=== PATIENT | male | born 1950 | race Caucasian/White ===

== ENCOUNTER 2019-01-27 09:14 | Inpatient (IN) | payer MEDICARE ==
[2019-01-27] MEDS ORDERED: NS 0.9% 1000 ML** 1,000 ML IV ONE (09:25)
[2019-01-27] MEDS ORDERED: Diltiazem IV VIAL* 125 MG in NS 0.9% 100 ML* 100 ML IV ONE (09:46)
[2019-01-27] MEDS ORDERED: Diltiazem IV push/loading dose 5 MG/ML 5 ML vial (25 mg) IV SLOW PU ONE (09:47)
--- NOTE | 2019-01-27 09:47 | ED ---
Shortness of Breath - HPI Summary HPI Summary: This patient is a 69 year old M presenting to [facility] accompanied by with a chief complaint of SOB since night of 01/26/19. Pt went to PCP yesterday 01/26/19 as he previously had pneumonia, and PCP did an EKG that revealed pt was tachycardic. Pt then went to PCP for a follow up today and was sent to the ED. Patient reports edema in legs. Pt reports he does not PMHx of atrial fibrillation. Symptoms aggravated by nothing. Symptoms alleviated by nothing. - History of Current Complaint Chief Complaint: EDDysrhythmPalp Time Seen by Provider: 01/27/19 09:25 Hx Obtained From: Patient Onset/Duration: Lasting Days, Still Present Timing: Constant Aggravating Factors: Nothing Alleviating Factors: Nothing Associated Signs & Symptoms: Edema - Allergy/Home Medications Allergies/Adverse Reactions: Allergies Allergy/AdvReac Type Severity Reaction Status Date / Time No Known Allergies Allergy Verified 01/27/19 09:17 Home Medications: Home Medications Metoprolol Tartrate TAB* [Lopressor TAB*] 50 mg PO BID 01/27/19 [History Confirmed 01/27/19] Rivaroxaban TAB(*) [Xarelto 20 mg] 20 mg PO DAILY 01/27/19 [History Confirmed ] PMH/Surg Hx/FS Hx/Imm Hx Sensory History: Denies: Hx Legally Blind EENT History: Denies: Hx Deafness Infectious Disease History: No Infectious Disease History: Denies: Traveled Outside the [place] in Last 30 Days - Family History Known Family History: Positive: Diabetes, Other - FHx of Heart Issues - Social History Occupation: Retired Alcohol Use: Occasionally Substance Use Type: Reports: None Hx Tobacco Use: Yes Smoking Status (MU): Former Smoker Review of Systems Positive: Other - A fib Positive: Shortness Of Breath Positive: Edema All Other Systems Reviewed And Are Negative: Yes Physical Exam - Summary Physical Exam Summary: GENERAL: Patient is a well-developed and nourished M who is lying comfortable in the stretcher. Patient is not in any acute respiratory distress. HEAD AND FACE: Normocephalic EYES: PERRLA, EOMI x 2. EARS: Hearing grossly intact. MOUTH: Oropharynx within normal limits. NECK: Supple, trachea is midline, no adenopathy, no JVD, no carotid bruit. CHEST: Symmetric, no tenderness at palpation LUNGS: Clear to auscultation bilaterally. Crackles on left side. CVS: Regular rate and rhythm, S1 and S2 present, no murmurs or gallops appreciated. ABDOMEN: Soft, non-tender. Bowel sounds are normal. No abnormal abdominal pulsations. EXTREMITIES: Full ROM in all major joints, 3+ pitting edema in legs, no cyanosis or clubbing. NEURO: Alert and oriented x 3. No acute neurological deficits. Speech is normal and follows commands. SKIN: Dry and warm Triage Information Reviewed: Yes Vital Signs On Initial Exam: Initial Vitals Temp Pulse Resp BP Pulse Ox 97.2 F 145 18 114/92 99 01/27/19 09:15 01/27/19 09:15 01/27/19 09:15 01/27/19 09:15 01/27/19 09:15 Vital Signs Reviewed: Yes Diagnostics - Vital Signs Vital Signs Temp Pulse Resp BP Pulse Ox 01/27/19 09:28 135 16 128/97 01/27/19 09:15 97.2 F 145 18 114/92 99 - Laboratory Result Diagrams: 01/28/19 05:58 01/28/19 05:58 Lab Statement: Any lab studies that have been ordered have been reviewed, and results considered in the medical decision making process. - Radiology CXR Radiology Interpretation Completed By: Radiologist Summary of Radiographic Findings: CXR reveals, per radiologist, IMPRESSION: Right mid to lower lobe airspace opacification. ED physician has reviewed this radiology report. - EKG 918 EKG Rhythm: Atrial Fibrillation Summary of EKG Findings: An EKG at 0919 reveals atrial fibrillation with RVR 138 bpm, associated diffuse t-wave abnormalities, and mild prolongation of QT. Re-Evaluation - Re-Evaluation First Eval Re-Evaluation Time: 12:17 Change: Unchanged Comment: Discussed results and plan of care with pt. Course/Dx - Course Course Of Treatment: This patient is a 69 year old M presenting to [facility] accompanied by with a chief complaint of SOB since night of 01/26/19. Physical Exam Findings are nml, except for crackles on left side, and 3+ pitting edema in legs. Blood Work obtained. D-Dimer is 531. Troponin is 0.04. RDW is 16. INR is 3.17, APTT is 43.6, Chloride is 112, BUN is 30, BUN/ Creatinine Ratio is 32.3, Calcium is 6.5, Total Bilirubin is 1.40, AST is 42, ALT is 54, B-Natriuretic Peptide is >1300, Total protein is 6.0. An EKG at 0919 reveals atrial fibrillation with RVR 138 bpm, associated diffuse t-wave abnormalities, and mild prolongation of QT. CXR reveals, per radiologist, IMPRESSION: Right mid to lower lobe airspace opacification. In the ED course the patient was given fluids, Diltiazen IV 125 mg and 10mg, Furosemide 40 mg IV , and ceftriaxone. Case discussed with hospitalist. I discussed results with patient. The patient agrees with this plan. Pt will be admitted. - Diagnoses Provider Diagnoses: Atrial fibrillation with RVR, Acute pneumonia - Physician Notifications Discussed Care of Patient With: Janet Figueroa Time Discussed With Above Provider: 11:01 Instructed by Provider To: Other - Discussed patient's case with Dr. Figueroa, who accepts pt for admission. - Critical Care Time Critical Care Time: 30-74 min Discharge - Sign-Out/Discharge Documenting (check all that apply): Patient Departure - Admmit Patient Received Moderate/Deep Sedation with Procedure: No - Discharge Plan Condition: Stable Disposition: ADMITTED TO [facility] - Billing Disposition and Condition Condition: STABLE Disposition: Admitted to [facility] - Attestation Statements Document Initiated by Sintia: Yes Documenting Scribe: Wendy Zuñiga Provider For Whom Sintia is Documenting (Include Credential): Dr. Dunia Milian MD Scribe Attestation: Wendy Price scribed for Dr. Dunia Milian MD on 01/28/19 at 0756. Scribe Documentation Reviewed: Yes Provider Attestation: The documentation as recorded by the Wendy bullard accurately reflects the service I personally performed and the decisions made by me, Dr. Dunia Milian MD Status of Scribe Document: Viewed
[2019-01-27 10:03] LABS: ABS Eosinophils 0.1 10^3/ul (0-0.6); ABS Lymphocytes 1.2 10^3/ul (1.0-4.8); ABS Monocytes 0.6 10^3/ul (0-0.8); ABS Neutrophils 6.4 10^3/ul (1.5-7.7); Eosinophil % 0.9 %; Hematocrit 45 % (42-52); Hemoglobin 14.9 g/dL (14.0-18.0); Lymphocyte % 14.7 %; Mean Corpuscular HGB Conc 33 g/dL (31-36); Mean Corpuscular Hemoglobin 31 pg (27-31); Mean Corpuscular Volume 94 fL (80-94); Mean Platelet Volume 10.1 fL (7.4-10.4); Platelet Count 184 10^3/uL (150-450); Red Blood Count 4.77 10^6 /uL (4.18-5.48); Red Cell Distribution Width 16 % (10-15); White Blood Count 8.4 10^3/uL (3.5-10.8)
[2019-01-27] MEDS ORDERED: Diltiazem IV BAG* D5W Premix 125 MG/125 ML BAG IV ONE (10:19)
[2019-01-27 10:25] LABS: Troponin I 0.04 ng/mL (<0.04)
[2019-01-27 10:29] LABS: Activated Partial Thrombo Time 43.6 seconds (26.0-38.0); INR 3.17 (0.82-1.09)
[2019-01-27 10:31] LABS: ALT 54 U/L (7-52); AST 42 U/L (13-39); Albumin 3.7 g/dL (3.2-5.2); Albumin/Globulin Ratio 1.6 (1-3); Alkaline Phosphatase 85 U/L (34-104); BUN/Creatinine Ratio 32.3 (8-20); Blood Urea Nitrogen 30 mg/dL (6-24); CO2 Carbon Dioxide 23 mmol/L (22-32); Calcium 8.5 mg/dL (8.6-10.3); EGFR African American 97.8 (>60); EGFR Non-African American 80.8 (>60); Globulin 2.3 g/dL (2-4); Glucose 100 mg/dL (70-100); Magnesium 1.9 mg/dL (1.9-2.7); Potassium 4.8 mmol/L (3.5-5.0); Sodium 143 mmol/L (135-145)
[2019-01-27 10:37] LABS: Anion Gap 8 mmol/L (2-11); Chloride 112 mmol/L (101-111)
[2019-01-27] MEDS ORDERED: Azithromycin 500 mg/250 ml NS 500 MG/250 ML BAG IVPB ONE (10:42)
[2019-01-27] MEDS ORDERED: cefTRIAXone(*) 1 GM in NS 0.9% 50 ML* 50 ML IVPB ONE (10:42)
[2019-01-27] MEDS ORDERED: Furosemide IV* 10 MG/ML VIAL (40 MG) IV ONE ×2 (10:44→22:09)
[2019-01-27 10:56] LABS: TSH (Thyroid Stimulating Horm) 3.72 mcIU/mL (0.34-5.60)
[2019-01-27] MEDS ORDERED: Digoxin IV* 0.5 MG/2 ML AMP (0.25 MG/ML) IV SLOW PU ONE (12:38)
[2019-01-27] MEDS ORDERED: Iodixanol* (CONTRAST) 320 MG/ML 100 ML SDV IV ONE (12:53)
[2019-01-27] MEDS ORDERED: Rivaroxaban TAB(*) 20 MG TAB PO SCH (13:00)
[2019-01-27] MEDS ORDERED: Thiamine IV* 100 MG/ML 2 ML VIAL IV ONE (13:22)
[2019-01-27] MEDS ORDERED: Acetaminophen TAB* 325 MG PO PRN (13:22)
[2019-01-27] MEDS ORDERED: LORazepam TAB(*) 1 MG PO SCH (14:00)
[2019-01-27] MEDS ORDERED: Heparin VIAL(*) 5000 UNITS/ML VIAL (FIVE THOUSAND) SUBCUT SCH (14:00)
[2019-01-27 14:15] LABS: Troponin I 0.04 ng/mL (<0.04)
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
[2019-01-27] MEDS: Diltiazem IV BAG* D5W Premix 125 MG/125 ML BAG IV SCH (16:37)
--- NOTE | 2019-01-27 17:17 | ECHO ---
*[facility]* [place] [address] Fax #: [phone] Transthoracic Echocardiogram Patient: Phani Branham : 1950 Study Date: 01/27/2019 Age: 69 Gender: M HR: 125 bpm Height: 78 in /198.1 cm BSA: 2.35 m^2 Weight: 219.5 lb /99.8 kg BMI: 25.4 kg/m^2 *[employer]: * Prudence Lehman RDCS RN *Referring Physician: * Janet RamirezReading Physician: * Eric Mar MD Indications: Atrial Fibrillation. History: Risk factors: Current tobacco use. Conclusions Summary: - Left ventricle: Systolic function is severely reduced. The estimated ejection fraction is 20-25%. Severe diffuse hypokinesis. The inferolateral base moves best. - Right ventricle: Systolic function is moderately to severely reduced. - Left atrium: The atrium is mildly dilated. - Mitral valve: There is mild to moderate regurgitation. - Aortic valve: There is no evidence of stenosis. There is trace regurgitation. - Tricuspid valve: The leaflets are mildly thickened. There is moderately redundant tricuspid valve There is moderate regurgitation. - Pericardium, extracardiac: There is no pericardial effusion. - Pulmonary arteries: Systolic pressure is mildly increased, estimated to be 38 mm Hg. - Study data: No prior study is available for comparison. Study data: Transthoracic echocardiogram. Procedure: Transthoracic echocardiography was performed. Image quality was fair. The study was technically limited due to smoking history. Complete 2D, spectral Doppler, and color flow Doppler. Location: Bedside. Patient status: Inpatient. Patient room number: 441-02. No prior study is available for comparison. Rhythm: Atrial fibrillation. Findings Left ventricle: The cavity size is normal. Wall thickness is mildly increased. Systolic function is severely reduced. The estimated ejection fraction is 20-25%. Severe diffuse hypokinesis. The inferolateral base moves best. Left ventricular diastolic function parameters are indeterminate. Right ventricle: The cavity size is mildly dilated. Systolic function is moderately to severely reduced. Left atrium: The atrium is mildly dilated. Right atrium: The atrium is moderately dilated. Mitral valve: The leaflets are mildly thickened. There is no evidence of stenosis. There is mild to moderate regurgitation. Aortic valve: The valve is trileaflet. The leaflets are mildly thickened. There is no evidence of stenosis. There is trace regurgitation. Tricuspid valve: The leaflets are mildly thickened. There is moderately redundant tricuspid valve There is no evidence of stenosis. There is moderate regurgitation. Pulmonic valve: The leaflets are normal thickness. There is no evidence of stenosis. There is trace regurgitation. Aorta: Aortic root: The aortic root is mildly dilated. Ascending aorta: The ascending aorta is not dilated. Aortic arch: The aortic arch is not dilated. Pericardium: There is no pericardial effusion. Pulmonary arteries: Not well visualized. Systolic pressure is mildly increased, estimated to be 38 mm Hg. Systemic veins: Inferior vena cava: The vessel is mildly dilated. There is (< 50%) respiratory change in the IVC dimension. Measurements Left ventricle Value Ref Aortic valve continued Value Ref REGGIE, LAX 5.5 cm 4.2 - Peak v, S 0.75 m/sec ----- 5.8 VTI, S 14.1 cm ----- ESD, LAX (H) 5.0 cm 2.5 - Mean grad, S 2.0 mm Hg ----- 4.0 Peak grad, S 2.0 mm Hg ----- FS, LAX (L) 9 % 25 - 43 LVOT/AV, VTI ratio 0.45 ----- PW, ED (H) 1.2 cm 0.6 - 1.0 Mitral valve Value Ref IVS/PW, ED 0.92 -------- Peak E 0.91 m/sec ----- E', lat jeromy, TDI (L) 5.6 cm/sec >=10.0 Decel time 126 ms ----- E/e', lat jeromy, TDI 16 -------- Peak grad, D 3.3 mm Hg --- -- E', med jeromy, TDI (L) 5.3 cm/sec >=7.0 E/e', med jeromy, TDI 17 -------- Pulmonic valve Value Ref E', avg, TDI 5.5 cm/sec -------- Peak v, S 0.46 m/sec --- -- E/e', avg, TDI (H) 17 <=14 Peak grad, S 1.0 mm Hg ----- LVOT Value Ref Tricuspid valve Value Ref Peak arnulfo, S 0.54 m/sec -------- TR peak v 2.4 m/sec <=2.8 VTI, S 6.4 cm -------- Peak RV-RA grad, S 23 mm Hg ----- Mean grad, S 0 mm Hg -------- Max TR arnulfo 2.4 m/sec ----- Ventricular septum Value Ref Aortic root Value Ref IVS, ED (H) 1.1 cm 0.6 - Root diam 4.0 cm <4.4 1.0 Ascending aorta Value Ref Right ventricle Value Ref AAo AP diam, S 3.6 cm ----- REGGIE, LAX 3.9 cm -------- AAo AP diam/bsa, S 1.5 cm/m^2 ----- REGGIE minor ax, A4C (H) 4.2 cm 1.9 - mid 3.5 Aortic arch Value Ref Pressure, S 38 mm Hg -------- Arch diam 3.2 cm ----- Left atrium Value Ref Decending aorta Value Ref ML dim, A4C 5.0 cm -------- Cricket peak arnulfo 0.38 m/sec ----- SI dim, A4C 5.4 cm -------- Vol/bsa, ES, 1-p 33 ml/m^2 12 - 37 Pulmonary artery Value Ref A4C Pressure, S 37.0 mm Hg ----- Vol/bsa, ES, A/L (H) 39 ml/m^2 16 - 34 Inferior vena cava Value Ref Right atrium Value Ref Diam 2.9 cm ----- ML dim, ES, A4C (H) 4.8 cm 2.6 - 4.4 SI dim, ES, A4C (H) 6.8 cm 3.4 - 5.3 Estimated RAP 15 mm Hg -------- Aortic valve Value Ref Jeromy diam, ED 2.0 cm -------- Jeromy diam/bsa, ED 0.8 cm/m^2 -------- Legend: (L) and (H) ezra values outside specified reference range. Prepared and electronically signed by Eric Mar MD 01/27/2019 17:17
[2019-01-27] MEDS: Rivaroxaban TAB(*) 20 MG TAB PO SCH (17:50)
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
[2019-01-27] MEDS: DOXYcycline IV* 100 MG in NS 0.9% 250 ML* 250 ML IVPB SCH (21:39)
[2019-01-28 06:22] LABS: ABS Eosinophils 0.2 10^3/ul (0-0.6); ABS Lymphocytes 1.9 10^3/ul (1.0-4.8); ABS Monocytes 0.6 10^3/ul (0-0.8); Eosinophil % 2.4 %; Hematocrit 45 % (42-52); Lymphocyte % 24.6 %; Mean Corpuscular HGB Conc 34 g/dL (31-36); Mean Corpuscular Hemoglobin 31 pg (27-31); Mean Corpuscular Volume 94 fL (80-94); Mean Platelet Volume 10.3 fL (7.4-10.4); Platelet Count 152 10^3/uL (150-450); Red Blood Count 4.76 10^6 /uL (4.18-5.48); Red Cell Distribution Width 15 % (10-15); White Blood Count 7.8 10^3/uL (3.5-10.8)
[2019-01-28 06:40] LABS: Albumin 3.6 g/dL (3.2-5.2); Albumin/Globulin Ratio 1.4 (1-3); Calcium 8.9 mg/dL (8.6-10.3); EGFR African American 102.9 (>60); Globulin 2.5 g/dL (2-4); Potassium 3.9 mmol/L (3.5-5.0); Total Bilirubin 1.6 mg/dL (0.2-1.0); Total Protein 6.1 g/dL (6.4-8.9)
[2019-01-28 06:55] LABS: INR 3.14 (0.82-1.09)
[2019-01-28] MEDS: Multivitamins/Minerals TAB PO SCH (07:59)
[2019-01-28] MEDS: Thiamine TAB* 100 MG TAB PO SCH (07:59)
[2019-01-28] MEDS: Folic Acid TAB* 1 MG PO SCH (07:59)
[2019-01-28] MEDS ORDERED: Verapamil SR TAB* 240 MG PO SCH (09:00)
[2019-01-28] MEDS: DOXYcycline IV* 100 MG in NS 0.9% 250 ML* 250 ML IVPB SCH ×2 (09:48→20:55)
[2019-01-28] MEDS: cefTRIAXone(*) 1 GM in NS 0.9% 50 ML* 50 ML IVPB SCH (11:23)
[2019-01-28] MEDS: Rivaroxaban TAB(*) 20 MG TAB PO SCH (12:49)
[2019-01-28] MEDS: Diltiazem IV BAG* D5W Premix 125 MG/125 ML BAG IV SCH (15:01)
[2019-01-28] MEDS ORDERED: fentaNYL* 50 MCG/ML 2 ML VIAL (100 MCG VIAL) ONE (15:10)
[2019-01-28] MEDS ORDERED: Flumazenil* 0.1 MG/ML 5 ML MDV ONE (15:10)
[2019-01-28] MEDS ORDERED: Midazolam* 1 MG/ML 5 ML VIAL (5 MG) ONE ×2 (15:10→15:11)
[2019-01-28] MEDS ORDERED: Lidocaine 2% VISCOUS* 15 ML UDC ONE (15:10)
[2019-01-28] MEDS ORDERED: Naloxone* 0.4 MG/ML 1 ML VIAL ONE (15:10)
[2019-01-28] MEDS ORDERED: Amiodarone 150 MG IVPREMIX* 150 MG/100 ML BAG IV ONE ×2 (16:11→16:39)
--- NOTE | 2019-01-28 16:22 | PN ---
Subjective Date of Service: 01/28/19 - CC: SOB, atrial fibrillation, severe cardiomyopathy. Interval History: The patient states leg edema improved, sleeping OK, has walked on the floor w/o problems. Remains unaware of afib, no palpitations. Medications Active Medications: Acetaminophen (Tylenol Tab*) 650 mg PO Q4H PRN PRN Reason: PAIN Amiodarone HCl (Cordarone Tab*) 400 mg PO BID [facility] Folic Acid (Folvite Tab*) 1 mg PO DAILY [facility] Last Admin: 01/28/19 07:59 Dose: 1 mg Doxycycline Hyclate 100 mg/ (Sodium Chloride) 250 mls @ 250 mls/hr IVPB Q12H [facility] Last Admin: 01/28/19 09:48 Dose: 250 mls/hr Ceftriaxone Sodium 1 gm/ (Sodium Chloride) 50 mls @ 100 mls/hr IVPB Q24H [facility] Last Admin: 01/28/19 11:23 Dose: 100 mls/hr Amiodarone HCl (Nexterone Drip*) 150 mg in 100 mls @ 600 mls/hr IV ED ONCE ONE Stop: 01/28/19 16:20 Multivitamins/Minerals (Theragran/Minerals Tab*) 1 tab PO DAILY [facility] Last Admin: 01/28/19 07:59 Dose: 1 tab Rivaroxaban (Xarelto(*)) 20 mg PO 0900 [facility] Last Admin: 01/28/19 12:49 Dose: 20 mg Thiamine HCl (Vitamin B-1 Tab*) 100 mg PO DAILY [facility] Last Admin: 01/28/19 07:59 Dose: 100 mg Verapamil HCl (Calan Sr Tab*) 240 mg PO DAILY [facility] Last Admin: 01/28/19 08:00 Dose: 240 mg Objective Vital Signs: Temp Pulse Resp BP Pulse Ox 97.6 F 72 30 125/104 95 01/28/19 07:20 01/28/19 15:05 01/28/19 15:05 01/28/19 15:05 01/28/19 15:05 Oxygen Devices in Use Now: None, Nasal Cannula Appearance: Somewhat older male,lying, comfortable. Eyes: No Scleral Icterus, PERRLA Ears/Nose/Mouth/Throat: Mucous Membranes Moist Neck: Trachea Midline, No Thyroid Enlargement, Masses Respiratory: Symmetrical Chest Expansion and Respiratory Effort - decreased BS bases. Cardiovascular: - - irregularly irregular, tachycardic Abdominal: NL Sounds; No Tenderness; No Distention Extremities: No Edema Skin: No Rash or Ulcers Neurological: Alert and Oriented x 3, NL Muscle Strength and Tone Lines/Tubes/Other Access: Clean, Dry and Intact Peripheral IV Laboratory Results: 01/28/19 05:58 01/28/19 05:58 INR (Anticoag Therapy) 3.14 (0.82-1.09) H 01/28/19 05:58 APTT 43.6 seconds (26.0-38.0) H 01/27/19 09:52 Total Bilirubin 1.60 mg/dL (0.2-1.0) H 01/28/19 05:58 AST 32 U/L (13-39) 01/28/19 05:58 ALT 46 U/L (7-52) 01/28/19 05:58 Alkaline Phosphatase 83 U/L (34-104) 01/28/19 05:58 B-Natriuretic Peptide > 1300 pg/mL (<=100) H 01/27/19 10:00 Total Protein 6.1 g/dL (6.4-8.9) L 01/28/19 05:58 Albumin 3.6 g/dL (3.2-5.2) 01/28/19 05:58 Globulin 2.5 g/dL (2-4) 01/28/19 05:58 Albumin/Globulin Ratio 1.4 (1-3) 01/28/19 05:58 TSH 3.72 mcIU/mL (0.34-5.60) 01/27/19 09:52 01/27/19 01/27/19 01/27/19 09:52 13:14 16:15 Troponin I 0.04 H* 0.04 H* 0.03 Diagnostic Imaging: Study data: Transthoracic echocardiogram. Rhythm: Atrial fibrillation. Findings Left ventricle: The cavity size is normal. Wall thickness is mildly increased. Systolic function is severely reduced. The estimated ejection fraction is 20-25%. Right ventricle: The cavity size is mildly dilated. Systolic function is moderately to severely reduced. Mitral valve: T There is mild to moderate regurgitation. Aortic valve: There is trace regurgitation. Tricuspid valve: There is moderate regurgitation. Pericardium: There is no pericardial effusion. Pulmonary arteries: Systolic pressure is mildly increased, estimated to be 38 mm Hg. Systemic veins: Inferior vena cava: The vessel is mildly dilated. There is (< 50%) respiratory change in the IVC dimension. - EKG Data: Tele: Afib, RVR 100-120's. Assessment/Plan 69 yo with afib, asymptomatic of uncertain duration with a severe CM, presumed to be tachycardic induced. Recent pneumonia, mild alcohol intake. The patient has been on Xarelto and underwent successful GRANT guided CV today. PAFib: Amiodarone started 400 BID, can decrease to 400 daily in 5 days or sooner in HR too low. Amiodarone 200 mg/day after 8 gram load. Continue Xarelto. CM + CHF I stopped diltiazem gtt and verapamil as negative ionotropes, not good with CM. Starting Carvedilol low dose. Recommend aldactone 25 mg daily with lasix 20 mg daily (or alternate if BP won't allow). If BP tolerates add ACEI or ARB. Titrate BB, ACEI, diuretics as vitals, fluid status indicates. Migraines: Per hospitalists verapamil was on for migraines. I discussed d/c of this, ideally would leave off unless/until EF improves.
--- NOTE | 2019-01-28 16:41 | PN ---
Subjective Date of Service: 01/28/19 Interval History: Patient went for cardioversion today, has had a-fib with RVR since admission. He was on verapamil for migraine prophylaxis. Reports beta blockers not effective in that role in past. Spoke with Dr. Maria, she is stopping verapamil as this can contribute to dilated cardiomyopathy, and stopping Dilt ggt as cardioversion was successful. Family History: Unchanged from Admission Social History: Unchanged from Admission Past Medical History: Unchanged from Admission Objective Active Medications: Acetaminophen (Tylenol Tab*) 650 mg PO Q4H PRN PRN Reason: PAIN Amiodarone HCl (Cordarone Tab*) 400 mg PO BID [facility] Carvedilol (Coreg Tab*) 3.125 mg PO BID [facility] Folic Acid (Folvite Tab*) 1 mg PO DAILY [facility] Last Admin: 01/28/19 07:59 Dose: 1 mg Doxycycline Hyclate 100 mg/ (Sodium Chloride) 250 mls @ 250 mls/hr IVPB Q12H [facility] Last Admin: 01/28/19 09:48 Dose: 250 mls/hr Ceftriaxone Sodium 1 gm/ (Sodium Chloride) 50 mls @ 100 mls/hr IVPB Q24H [facility] Last Admin: 01/28/19 11:23 Dose: 100 mls/hr Multivitamins/Minerals (Theragran/Minerals Tab*) 1 tab PO DAILY [facility] Last Admin: 01/28/19 07:59 Dose: 1 tab Rivaroxaban (Xarelto(*)) 20 mg PO 0900 [facility] Last Admin: 01/28/19 12:49 Dose: 20 mg Thiamine HCl (Vitamin B-1 Tab*) 100 mg PO DAILY [facility] Last Admin: 01/28/19 07:59 Dose: 100 mg Topiramate (Topamax(*)) 25 mg PO BID [facility] Vital Signs - 8 hr 01/28/19 01/28/19 01/28/19 15:04 15:05 15:30 Temperature 36.8 C Pulse Rate 72 Respiratory 36 30 Rate Blood Pressure 125/104 (mmHg) O2 Sat by Pulse 95 Oximetry 01/28/19 01/28/19 01/28/19 15:33 15:39 15:42 Temperature Pulse Rate 90 90 95 Respiratory Rate Blood Pressure 153/119 91/66 72/60 (mmHg) O2 Sat by Pulse 92 93 92 Oximetry 01/28/19 01/28/19 01/28/19 16:12 16:17 16:22 Temperature Pulse Rate 72 71 74 Respiratory Rate Blood Pressure 118/79 119/76 120/86 (mmHg) O2 Sat by Pulse 97 98 96 Oximetry Oxygen Devices in Use Now: None, Nasal Cannula Appearance: alert, no distress Eyes: No Scleral Icterus Ears/Nose/Mouth/Throat: Clear Oropharnyx Neck: No Thyroid Enlargement, Masses Respiratory: Symmetrical Chest Expansion and Respiratory Effort, Clear to Auscultation Cardiovascular: NL Sounds; No Murmurs; No JVD, RRR Abdominal: NL Sounds; No Tenderness; No Distention Lymphatic: No Cervical Adenopathy Neurological: Alert and Oriented x 3 Lines/Tubes/Other Access: Clean, Dry and Intact Peripheral IV Nutrition: Taking PO's Result Diagrams: 01/28/19 05:58 01/28/19 05:58 Additional Lab and Data: Laboratory Tests 01/27/19 01/27/19 01/27/19 10:00 13:14 16:15 Troponin I 0.04 H* 0.03 B-Natriuretic Peptide > 1300 H Assess/Plan/Problems-Billing Assessment: 69 year old man with h/o migraines, here with a-fib, rapid ventricular response , tachycardia-induced cardiomyopathy - Patient Problems (1) Atrial fibrillation with RVR Current Visit: Yes Status: Acute Priority: High Code(s): I48.91 - UNSPECIFIED ATRIAL FIBRILLATION SNOMED Code(s): 899421555306670 Comment: -Cardioversion successful -Anticoagulation with Xarelto already initiated -Dr. Maria starting amiodarone to maintain NSR (2) Tachycardia-induced cardiomyopathy Current Visit: Yes Status: Acute Priority: Medium Code(s): R00.0 - TACHYCARDIA, UNSPECIFIED; I43 - CARDIOMYOPATHY IN DISEASES CLASSIFIED ELSEWHERE SNOMED Code(s): 441255994 Comment: -May take weeks-months to recover -Verapamil stopped due to negative inotropy -Will need outpatient echo in 1 month (3) Migraine Current Visit: Yes Status: Acute Priority: Medium Code(s): G43.909 - MIGRAINE, UNSP, NOT INTRACTABLE, WITHOUT STATUS MIGRAINOSUS SNOMED Code(s): 02944474 Comment: -Starting topamax to prevent migraines -Will reassess tomorrow. (4) Pneumonia Current Visit: Yes Status: Acute Priority: Medium Code(s): J18.9 - PNEUMONIA, UNSPECIFIED ORGANISM SNOMED Code(s): 200010215 Comment: -Continue ceftriaxone and doxycycline (5) DVT prophylaxis Current Visit: Yes Status: Acute Priority: Low Code(s): Z29.9 - ENCOUNTER FOR PROPHYLACTIC MEASURES, UNSPECIFIED SNOMED Code(s): 670518921 Comment: -Xarelto Status and Disposition: inpatient
--- NOTE | 2019-01-28 17:19 | CARD ---
ELECTRICAL CARDIOVERSION REPORT: DATE OF PROCEDURE: 01/28/19 PROCEDURE: Electrical cardioversion with GRANT guidance. PRE-PROCEDURE DIAGNOSES: Atrial fibrillation and severe cardiomyopathy. POST-PROCEDURE DIAGNOSES: Atrial fibrillation and severe cardiomyopathy. The indications, risks, and benefits for both GRANT and cardioversion were discussed with the patient a nd he was amenable to proceeding. DESCRIPTION OF PROCEDURE: AP patches were applied. A time-out was called for both procedures. The GRANT was performed and documented separately, but did not show thrombus in the left atrial appendage o r left atrium and the decision was made to proceed with electrical cardioversion. Doses of Versed an d fentanyl are documented separately. Using AP patches, 200 joules of energy were delivered across the chest wall with successful cardiover moody from atrial fibrillation at 120 beats a minute to normal sinus rhythm 70-78 beats a minute. The patient had transiently dropped his pressure during the transesophageal echo that he was hemodyna mically stable throughout the electrical cardioversion and afterwards. A 12-lead ECG is pending. CONCLUSION: Successful cardioversion from atrial fibrillation to normal sinus rhythm. [id number]/[facility] #: [id number]
[2019-01-28] MEDS: Amiodarone TAB* 400 MG PO SCH (20:55)
[2019-01-28] MEDS: Topiramate TAB(*) 25 MG PO SCH (20:55)
[2019-01-28] MEDS: Carvedilol TAB* 3.125 MG PO SCH (20:55)
[2019-01-29] MEDS: Thiamine TAB* 100 MG TAB PO SCH (08:44)
[2019-01-29] MEDS: Carvedilol TAB* 3.125 MG PO SCH (08:44)
[2019-01-29] MEDS: Amiodarone TAB* 400 MG PO SCH ×2 (08:44→21:22)
[2019-01-29] MEDS: Rivaroxaban TAB(*) 20 MG TAB PO SCH (08:44)
[2019-01-29] MEDS: Folic Acid TAB* 1 MG PO SCH (08:44)
[2019-01-29] MEDS: Multivitamins/Minerals TAB PO SCH (08:44)
[2019-01-29] MEDS: Topiramate TAB(*) 25 MG PO SCH ×2 (08:45→21:22)
[2019-01-29] MEDS: DOXYcycline IV* 100 MG in NS 0.9% 250 ML* 250 ML IVPB SCH ×2 (08:45→21:21)
[2019-01-29] MEDS ORDERED: Phytonadione Oral Solution* 5 MG/25 ML UDC PO ONE (10:15)
[2019-01-29] MEDS ORDERED: Furosemide IV* 10 MG/ML VIAL (40 MG) IV ONE (10:17)
--- NOTE | 2019-01-29 10:30 | PN ---
<MorenaReanna - Last Filed: 01/29/19 10:16> Subjective Date of Service: 01/29/19 - Newly diagnosed AF with RVR, severe LV dysfunction Interval History: 1 week h/o SOB, lower extremity edema. States breathing has improved but is not at baseline. Denies chest pain, palpitations, sensation of heart racing or dizziness/syncope. Medications Active Medications: Acetaminophen (Tylenol Tab*) 650 mg PO Q4H PRN PRN Reason: PAIN Amiodarone HCl (Cordarone Tab*) 400 mg PO BID [facility] Last Admin: 01/29/19 08:44 Dose: 400 mg Carvedilol (Coreg Tab*) 3.125 mg PO BID [facility] Last Admin: 01/29/19 08:44 Dose: 3.125 mg Folic Acid (Folvite Tab*) 1 mg PO DAILY [facility] Last Admin: 01/29/19 08:44 Dose: 1 mg Doxycycline Hyclate 100 mg/ (Sodium Chloride) 250 mls @ 250 mls/hr IVPB Q12H [facility] Last Admin: 01/29/19 08:45 Dose: 250 mls/hr Ceftriaxone Sodium 1 gm/ (Sodium Chloride) 50 mls @ 100 mls/hr IVPB Q24H [facility] Last Admin: 01/28/19 11:23 Dose: 100 mls/hr Multivitamins/Minerals (Theragran/Minerals Tab*) 1 tab PO DAILY [facility] Last Admin: 01/29/19 08:44 Dose: 1 tab Rivaroxaban (Xarelto(*)) 20 mg PO 0900 [facility] Last Admin: 01/29/19 08:44 Dose: 20 mg Thiamine HCl (Vitamin B-1 Tab*) 100 mg PO DAILY [facility] Last Admin: 01/29/19 08:44 Dose: 100 mg Topiramate (Topamax(*)) 25 mg PO BID [facility] Last Admin: 01/29/19 08:45 Dose: 25 mg Objective Vital Signs: Temp Pulse Resp BP Pulse Ox 97.6 F 47 20 131/98 97 01/29/19 07:15 01/29/19 07:15 01/29/19 07:17 01/29/19 07:15 01/29/19 07:15 Oxygen Devices in Use Now: None, Nasal Cannula Appearance: Somewhat older male,lying, comfortable. Eyes: No Scleral Icterus, PERRLA Ears/Nose/Mouth/Throat: Mucous Membranes Moist Neck: Trachea Midline, No Thyroid Enlargement, Masses Respiratory: Symmetrical Chest Expansion and Respiratory Effort - decreased BS bases. Cardiovascular: - - tachy S1, S2. RRR no murmur Abdominal: NL Sounds; No Tenderness; No Distention Extremities: No Edema Skin: No Rash or Ulcers Neurological: Alert and Oriented x 3, NL Muscle Strength and Tone Lines/Tubes/Other Access: Clean, Dry and Intact Peripheral IV Laboratory Results: 01/28/19 05:58 01/28/19 05:58 INR (Anticoag Therapy) 3.14 (0.82-1.09) H 01/28/19 05:58 APTT 43.6 seconds (26.0-38.0) H 01/27/19 09:52 Total Bilirubin 1.60 mg/dL (0.2-1.0) H 01/28/19 05:58 AST 32 U/L (13-39) 01/28/19 05:58 ALT 46 U/L (7-52) 01/28/19 05:58 Alkaline Phosphatase 83 U/L (34-104) 01/28/19 05:58 B-Natriuretic Peptide > 1300 pg/mL (<=100) H 01/27/19 10:00 Total Protein 6.1 g/dL (6.4-8.9) L 01/28/19 05:58 Albumin 3.6 g/dL (3.2-5.2) 01/28/19 05:58 Globulin 2.5 g/dL (2-4) 01/28/19 05:58 Albumin/Globulin Ratio 1.4 (1-3) 01/28/19 05:58 TSH 3.72 mcIU/mL (0.34-5.60) 01/27/19 09:52 01/27/19 01/27/19 01/27/19 09:52 13:14 16:15 Troponin I 0.04 H* 0.04 H* 0.03 Diagnostic Imaging: Study data: Transthoracic echocardiogram. Rhythm: Atrial fibrillation. Findings Left ventricle: The cavity size is normal. Wall thickness is mildly increased. Systolic function is severely reduced. The estimated ejection fraction is 20-25%. Right ventricle: The cavity size is mildly dilated. Systolic function is moderately to severely reduced. Mitral valve: T There is mild to moderate regurgitation. Aortic valve: There is trace regurgitation. Tricuspid valve: There is moderate regurgitation. Pericardium: There is no pericardial effusion. Pulmonary arteries: Systolic pressure is mildly increased, estimated to be 38 mm Hg. Systemic veins: Inferior vena cava: The vessel is mildly dilated. There is (< 50%) respiratory change in the IVC dimension. - EKG Data: Tele: Sinus rhythm rate 90-100 with occasional PVC. No AF since 01/28/2019 Assessment/Plan #1 Newly Diagnosed SHF with severe LV dysfunction; LVEF 20-25% with diffuse hypokinesis. Presented with decompensated + SOB, edema and ascites on imaging. Patient had mild transaminitis with coagulopathy and elevated bili possibly related to hepatic congestion. Will give one time dose of IV lasix 40mg and start Lasix 20mg/day starting tomorrow. Increase Coreg to 3.125mg in am and 6.25 mg at night. Start Lisinopril 2.5mg/day. Etiology of SHF is not clear thought to be ? tachycardia induced CM however, he will need eventual ischemic eval given minimal troponin elevation and risk factors. #2 Newly diagnosed PAF; Chads Vasc 3 given age, h/o HTN and LV dysfunction. On xarelto 20/day. Given INR elevation, mild ascites and albumin Child Pough is class B thus Xarelto is contraindicated. Will transition to Eliquis 5mg PO BID starting tomorrow. On Amiodarone 200mg Po BID and coreg therapy. HR 90-100 in NSR coreg to be increased. TSH was normal. Patient has been in NSR since CV 01/28. #3 Abnormal Liver Tests; etiology not clear could be related to above number 1. Child Pough Class B will differ evaluation to coagulopathy to primary team. Patient is s/p CV on now Eliquis therapy. Xarelto was stopped. Will monitor LFTS closely due to initiation of Amiodarone therapy. #4 Dispositon pending course will d/w Dr. Major Attending: Luis Armando Major <Luis Armando Major - Last Filed: 01/30/19 14:50> Medications Active Medications: Acetaminophen (Tylenol Tab*) 650 mg PO Q4H PRN PRN Reason: PAIN Amiodarone HCl (Cordarone Tab*) 200 mg PO BID [facility] Apixaban (Eliquis*) 5 mg PO BID [facility] Last Admin: 01/30/19 07:53 Dose: 5 mg Carvedilol (Coreg Tab*) 6.25 mg PO BID [facility] Last Admin: 01/30/19 12:05 Dose: 6.25 mg Carvedilol (Coreg Tab*) 6.25 mg PO ONCE ONE Stop: 01/30/19 14:48 Folic Acid (Folvite Tab*) 1 mg PO DAILY [facility] Last Admin: 01/30/19 07:53 Dose: 1 mg Furosemide (Lasix Tab*) 20 mg PO DAILY [facility] Last Admin: 01/30/19 07:53 Dose: 20 mg Lisinopril (Prinivil Tab*) 5 mg PO DAILY [facility] Lisinopril (Prinivil Tab*) 2.5 mg PO ONCE ONE Stop: 01/30/19 14:47 Multivitamins/Minerals (Theragran/Minerals Tab*) 1 tab PO DAILY [facility] Last Admin: 01/30/19 07:53 Dose: 1 tab Thiamine HCl (Vitamin B-1 Tab*) 100 mg PO DAILY [facility] Last Admin: 01/30/19 07:53 Dose: 100 mg Topiramate (Topamax(*)) 25 mg PO BID [facility] Last Admin: 01/30/19 07:53 Dose: 25 mg Objective Vital Signs: Temp Pulse Resp BP Pulse Ox 97.4 F 79 20 150/90 94 01/30/19 11:15 01/30/19 11:15 01/30/19 11:15 01/30/19 11:15 01/30/19 11:15 Laboratory Results: 01/28/19 05:58 01/30/19 09:31 INR (Anticoag Therapy) 2.17 (0.82-1.09) H 01/30/19 05:43 APTT 37.3 seconds (26.0-38.0) 01/30/19 05:43 Total Bilirubin 1.60 mg/dL (0.2-1.0) H 01/28/19 05:58 AST 32 U/L (13-39) 01/28/19 05:58 ALT 46 U/L (7-52) 01/28/19 05:58 Alkaline Phosphatase 83 U/L (34-104) 01/28/19 05:58 B-Natriuretic Peptide > 1300 pg/mL (<=100) H 01/27/19 10:00 Total Protein 6.1 g/dL (6.4-8.9) L 01/28/19 05:58 Albumin 3.6 g/dL (3.2-5.2) 01/28/19 05:58 Globulin 2.5 g/dL (2-4) 01/28/19 05:58 Albumin/Globulin Ratio 1.4 (1-3) 01/28/19 05:58 TSH 3.72 mcIU/mL (0.34-5.60) 01/27/19 09:52 01/27/19 01/27/19 01/27/19 09:52 13:14 16:15 Troponin I 0.04 H* 0.04 H* 0.03 Assessment/Plan Reviewed with Ms. Berg and agree with plan.
[2019-01-29] MEDS: Lisinopril TAB* 5 MG PO SCH (11:15)
[2019-01-29] MEDS: cefTRIAXone(*) 1 GM in NS 0.9% 50 ML* 50 ML IVPB SCH (11:16)
--- NOTE | 2019-01-29 11:23 | TEE ---
*[facility]* [place] [address] Fax #: [phone] Transesophageal Echocardiogram Patient: Phani Branham : 1950 Study Date: 01/28/2019 Age: 69 Gender: M HR: 68 bpm Height: 72 in /182.9 cm BSA: 2.23 m^2 Weight: 222.5 lb /101.2 kg BMI: 30.2 kg/m^2 *Backrest Assembler: * Anabelle Hernadez [facility] *Referring Physician: * Eric Mar MD *Reading Physician: * Kate Maria MD Indications: Atrial Fibrillation. History: Risk factors: Current tobacco use. Conclusions Summary: - Left ventricle: Systolic function is severely reduced. The estimated ejection fraction is 20-25%. - Right ventricle: Systolic function is moderately to severely reduced. - Left atrium: There is no evidence of a thrombus in the atrial cavity or appendage. - Atrial septum: A PFO is not demonstrated by color Doppler or agitated saline contrast. Negative bubble study. - Mitral valve: There is moderate regurgitation. - Aortic valve: There is trace to mild regurgitation. - Tricuspid valve: There is mild-moderate regurgitation. - Pulmonic valve: There is trace regurgitation. - Ascending aorta: The ascending aorta is mildly dilated. - Pulmonary arteries: The main pulmonary artery is normal-sized. 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 This was not seen in a deep gastric view of the pulmonary arterey raising the possibility of artifact/superimposed normal vasculature. Recommendations: - Proceded with electrical cardioversion. - Outpatient transthoracic echocardiogram recommended to follow up on pulmonary artery findings, additionally CTA could be of assistance in the future prn. Study data: Diagnostic Transesophageal Echocardiogram Consent: The risks and benefits of the procedure, including alternatives were discussed with the patient and/or their health care solar manufacturer's representative and written informed consent was obtained. Procedure: Initial setup: The patient was brought to the laboratory in the fasting state.Intravenous access was obtained. Surface ECG leads, heart rate, heart rhythm, blood pressure measurements, pulse oximetric signals, and mainstream end-tidal CO2 tracings were monitored throughout the procedure. Sedation. Moderate sedation was administered by nursing staff. History and physical as well as labs were reviewed. An oral bite block was inserted for protection of oral dentition. The patient was placed in the left lateral decubitus position. Topical anesthesia was obtained using viscous lidocaine. A transesophageal probe was inserted by the attending radio journalist. Transesophageal echocardiography was performed, image quality was good, and all standard views were attempted within the limitations of patient tolerance and safety. Multiple 2D, color flow Doppler and spectral Doppler images were obtained. The transesophageal probe was removed. A bubble study was performed. Images 49- 50 Location: Procedure room. Patient status: Inpatient. Patient room number: 441 02. Study completion: The patient tolerated the procedure well. There were no complications. Administered medications: Midazolam, 5mg. Fentanyl, 50mcg. Findings Left ventricle: Systolic function is severely reduced. The estimated ejection fraction is 20-25%. Wall motion is normal; there are no regional wall motion abnormalities. Right ventricle: The cavity size is normal. Systolic function is moderately to severely reduced. Left atrium: The atrium is moderately dilated. There is no evidence of a thrombus in the atrial cavity or appendage. Right atrium: The atrium is moderately dilated. There is no evidence of a thrombus in the atrial cavity or appendage. Atrial septum: A PFO is not demonstrated by color Doppler or agitated saline contrast. Negative bubble study. Mitral valve: The leaflets are normal thickness. There is no evidence of stenosis. There is moderate regurgitation. Aortic valve: The valve is trileaflet. The leaflets are normal thickness. There is no evidence of stenosis. There is trace to mild regurgitation. Tricuspid valve: The leaflets are mildly thickened and redundant. There is no evidence of stenosis. There is mild-moderate regurgitation. Pulmonic valve: The valve is structurally normal. There is trace regurgitation. Aorta: Aortic root: The aortic root is mildly dilated. Ascending aorta: The ascending aorta is mildly dilated. Aortic arch: The aortic arch is calcified. Descending aorta: The descending aorta is appears normal. Pericardium: There is no significant pericardial effusion. Pulmonary arteries: The main pulmonary artery is normal-sized. 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 This was not seen in a deep gastric view of the pulmonary arterey raising the possibility of artifact/superimposed normal vasculature. Systemic veins: Inferior vena cava: The vessel is normal in size. Superior vena cava: The vessel is appears normal. Pulmonary veins: The Pulmonary veins appear normal. Measurements Aortic valve Value Ref Tricuspid valve Value Ref Verenice diam, ED 2.3 cm ---- TR peak v 2.1 m/sec <=2.8 Peak RV-RA grad, S 18 mm Hg ----- Mitral valve Value Ref Peak E 0.75 m/sec ---- Aortic root Value Ref Peak A 0.04 m/sec ---- Root diam 3.9 cm <4.3 Decel time 64 ms ---- Peak grad, D 2.2 mm Hg ---- Ascending aorta Value Ref Peak E/A ratio 19.1 ---- AAo AP diam, S 3.7 cm ----- AAo AP diam/bsa, S 1.7 cm/m^2 ----- Legend: (L) and (H) ezra values outside specified reference range. Prepared and electronically signed by Kate Maria MD 01/29/2019 11:23
[2019-01-29 11:46] LABS: INR 2.97 (0.82-1.09)
[2019-01-29 14:30] LABS: PT/After 1 Hour Incubation 19.3 seconds (9.4-12.5)
--- NOTE | 2019-01-29 18:16 | PN ---
Subjective Date of Service: 01/29/19 Interval History: Patient walked in the hallway earlier today. Denies SAUCEDO. He states he can lie flat at night. He heard today from cardiology that heart is only pumping 30% of normal, and this upset him. Eating well. Family History: Unchanged from Admission Social History: Unchanged from Admission Past Medical History: Unchanged from Admission Objective Active Medications: Acetaminophen (Tylenol Tab*) 650 mg PO Q4H PRN PRN Reason: PAIN Amiodarone HCl (Cordarone Tab*) 400 mg PO BID [facility] Last Admin: 01/29/19 08:44 Dose: 400 mg Apixaban (Eliquis*) 5 mg PO BID [facility] Carvedilol (Coreg Tab*) 6.25 mg PO 2100 [facility] Carvedilol (Coreg Tab*) 3.125 mg PO DAILY [facility] Folic Acid (Folvite Tab*) 1 mg PO DAILY [facility] Last Admin: 01/29/19 08:44 Dose: 1 mg Furosemide (Lasix Tab*) 20 mg PO DAILY [facility] Doxycycline Hyclate 100 mg/ (Sodium Chloride) 250 mls @ 250 mls/hr IVPB Q12H [facility] Last Admin: 01/29/19 08:45 Dose: 250 mls/hr Ceftriaxone Sodium 1 gm/ (Sodium Chloride) 50 mls @ 100 mls/hr IVPB Q24H [facility] Last Admin: 01/29/19 11:16 Dose: 100 mls/hr Lisinopril (Prinivil Tab*) 2.5 mg PO DAILY [facility] Last Admin: 01/29/19 11:15 Dose: 2.5 mg Multivitamins/Minerals (Theragran/Minerals Tab*) 1 tab PO DAILY [facility] Last Admin: 01/29/19 08:44 Dose: 1 tab Thiamine HCl (Vitamin B-1 Tab*) 100 mg PO DAILY [facility] Last Admin: 01/29/19 08:44 Dose: 100 mg Topiramate (Topamax(*)) 25 mg PO BID [facility] Last Admin: 01/29/19 08:45 Dose: 25 mg Vital Signs - 8 hr 01/29/19 01/29/19 11:15 15:15 Temperature 36.3 C Pulse Rate 90 Respiratory 22 18 Rate Blood Pressure 116/75 (mmHg) O2 Sat by Pulse 96 Oximetry Oxygen Devices in Use Now: None, Nasal Cannula Appearance: alert, no distress Eyes: No Scleral Icterus Ears/Nose/Mouth/Throat: NL Teeth, Lips, Gums Neck: NL Appearance and Movements; NL JVP Respiratory: Symmetrical Chest Expansion and Respiratory Effort, Clear to Auscultation Cardiovascular: NL Sounds; No Murmurs; No JVD, - - 2+ edema bilat LE Lymphatic: No Cervical Adenopathy Skin: No Rash or Ulcers Neurological: Alert and Oriented x 3 Lines/Tubes/Other Access: Clean, Dry and Intact Peripheral IV Nutrition: Taking PO's Result Diagrams: 01/28/19 05:58 01/28/19 05:58 Additional Lab and Data: Laboratory Tests 01/29/19 11:21 INR (Anticoag Therapy) 2.97 H APTT 44.0 H PT Patient/Normal 1:1 18.5 H PT Pat/Norm 1:1 1 Hr 19.3 H PTT Normal Plasma 1 Hr 38.6 H PTT Patient/Normal 1:1 36.8 Mixing Interpretation Microbiology and Other Data: Microbiology 01/29/19 10:05 Legionella Urinary Antigen - Final Urine Negative Legionella Antigen Streptococcus pneumoniae Ag Screen - Final Negative S. pneumo Antigen Assess/Plan/Problems-Billing Assessment: 69 year old man with h/o migraines, here with a-fib, rapid ventricular response , tachycardia-induced cardiomyopathy - Patient Problems (1) Atrial fibrillation with RVR Current Visit: Yes Status: Acute Priority: High Code(s): I48.91 - UNSPECIFIED ATRIAL FIBRILLATION SNOMED Code(s): 572644807077296 Comment: -Cardioversion successful yesterday -Anticoagulation changed to Eliquis due to elevated INR on Xarelto -Dr. Maria started amiodarone to maintain NSR (2) Tachycardia-induced cardiomyopathy Current Visit: Yes Status: Acute Priority: Medium Code(s): R00.0 - TACHYCARDIA, UNSPECIFIED; I43 - CARDIOMYOPATHY IN DISEASES CLASSIFIED ELSEWHERE SNOMED Code(s): 273960463 Comment: -May take weeks-months to recover -Patient educated re causes of CHF -Will need outpatient echo in 1 month (3) Migraine Current Visit: Yes Status: Acute Priority: Medium Code(s): G43.909 - MIGRAINE, UNSP, NOT INTRACTABLE, WITHOUT STATUS MIGRAINOSUS SNOMED Code(s): 18993477 Comment: -Started topamax to prevent migraines, as verapamil stopped -No migraines as of yet. (4) Pneumonia Current Visit: Yes Status: Acute Priority: Medium Code(s): J18.9 - PNEUMONIA, UNSPECIFIED ORGANISM SNOMED Code(s): 653005698 Comment: -No pneumonia seen on CT chest, will stop antibiotics. (5) DVT prophylaxis Current Visit: Yes Status: Acute Priority: Low Code(s): Z29.9 - ENCOUNTER FOR PROPHYLACTIC MEASURES, UNSPECIFIED SNOMED Code(s): 451518480 Comment: -Eliquis (6) Coagulopathy Current Visit: Yes Status: Acute Priority: Medium Comment: -Consulted w/ Dr. Milton today -Differential includes liver congestion from CHF, nutritional deficiency, inhibitor -Switched to Eliquis, more safe in cirrhosis. -1 dose oral VitK given -Rechecking PT/PTT tomorrow Status and Disposition: inpatient, possible discharge in 1-2 days
[2019-01-29] MEDS ORDERED: Carvedilol TAB* 3.125 MG PO SCH (21:00)
[2019-01-29] MEDS ORDERED: NS 0.9% 250 ML* 0 ML ONE (21:20)
[2019-01-29] MEDS ORDERED: Carvedilol TAB* 6.25 MG PO SCH (22:00)
[2019-01-30 06:12] LABS: Activated Partial Thrombo Time 37.3 seconds (26.0-38.0); INR 2.17 (0.82-1.09)
[2019-01-30] MEDS: Folic Acid TAB* 1 MG PO SCH (07:53)
[2019-01-30] MEDS: Topiramate TAB(*) 25 MG PO SCH ×2 (07:53→20:40)
[2019-01-30] MEDS: Lisinopril TAB* 5 MG PO SCH (07:53)
[2019-01-30] MEDS: Apixaban* 5 MG TAB PO SCH ×2 (07:53→20:40)
[2019-01-30] MEDS: Furosemide TAB* 20 MG PO SCH (07:53)
[2019-01-30] MEDS: Thiamine TAB* 100 MG TAB PO SCH (07:53)
[2019-01-30] MEDS: Amiodarone TAB* 400 MG PO SCH (07:53)
[2019-01-30] MEDS: Multivitamins/Minerals TAB PO SCH (07:53)
[2019-01-30] MEDS ORDERED: Carvedilol TAB* 3.125 MG PO SCH (09:00)
[2019-01-30] MEDS ORDERED: Lisinopril TAB* 5 MG PO ONE ×2 (09:32→14:46)
[2019-01-30 10:15] LABS: Anion Gap 6 mmol/L (2-11); CO2 Carbon Dioxide 27 mmol/L (22-32); Calcium 8.6 mg/dL (8.6-10.3); Chloride 108 mmol/L (101-111); Potassium 4.2 mmol/L (3.5-5.0); Sodium 141 mmol/L (135-145)
[2019-01-30 10:20] LABS: BUN/Creatinine Ratio 26.3 (8-20); Blood Urea Nitrogen 25 mg/dL (6-24); EGFR African American 95.4 (>60); EGFR Non-African American 78.8 (>60); Glucose 94 mg/dL (70-100)
[2019-01-30] MEDS ORDERED: Magnesium Sulfate 2 GM IV* 2 GM/50 ML BAG IVPB ONE (10:36)
--- NOTE | 2019-01-30 10:43 | PN ---
<Reanna Berg - Last Filed: 01/30/19 10:36> Subjective Date of Service: 01/30/19 - SHF, Troponin elevation, AF Interval History: 1 week h/o SOB, lower extremity edema. States breathing has improved. After IV lasix yesterday he adds he had increased urine output. He is sitting in the [place] with at his side. He and his state they were not aware of severity of LVEF reduction prior to yesterday morning thus were overwhelmed. They add that they feel better today and now understand the importance of NA+ and fluid restriction. He denies chest pain and is tolerating increased Bblocker and addition of ACEI. Medications Active Medications: Acetaminophen (Tylenol Tab*) 650 mg PO Q4H PRN PRN Reason: PAIN Amiodarone HCl (Cordarone Tab*) 400 mg PO BID [facility] Last Admin: 01/30/19 07:53 Dose: 400 mg Apixaban (Eliquis*) 5 mg PO BID [facility] Last Admin: 01/30/19 07:53 Dose: 5 mg Carvedilol (Coreg Tab*) 6.25 mg PO 2100 [facility] Last Admin: 01/29/19 21:22 Dose: 6.25 mg Carvedilol (Coreg Tab*) 3.125 mg PO DAILY [facility] Last Admin: 01/30/19 07:53 Dose: 3.125 mg Folic Acid (Folvite Tab*) 1 mg PO DAILY [facility] Last Admin: 01/30/19 07:53 Dose: 1 mg Furosemide (Lasix Tab*) 20 mg PO DAILY [facility] Last Admin: 01/30/19 07:53 Dose: 20 mg Doxycycline Hyclate 100 mg/ (Sodium Chloride) 250 mls @ 250 mls/hr IVPB Q12H [facility] Last Admin: 01/29/19 21:21 Dose: 250 mls/hr Ceftriaxone Sodium 1 gm/ (Sodium Chloride) 50 mls @ 100 mls/hr IVPB Q24H [facility] Last Admin: 01/29/19 11:16 Dose: 100 mls/hr Lisinopril (Prinivil Tab*) 5 mg PO DAILY [facility] Multivitamins/Minerals (Theragran/Minerals Tab*) 1 tab PO DAILY [facility] Last Admin: 01/30/19 07:53 Dose: 1 tab Thiamine HCl (Vitamin B-1 Tab*) 100 mg PO DAILY [facility] Last Admin: 01/30/19 07:53 Dose: 100 mg Topiramate (Topamax(*)) 25 mg PO BID [facility] Last Admin: 01/30/19 07:53 Dose: 25 mg Objective Vital Signs: Temp Pulse Resp BP Pulse Ox 97.5 F 43 18 140/97 99 01/30/19 07:15 01/30/19 07:15 01/30/19 08:00 01/30/19 07:15 01/30/19 07:15 Oxygen Devices in Use Now: None Appearance: Somewhat older male,lying, comfortable. Eyes: No Scleral Icterus, PERRLA Ears/Nose/Mouth/Throat: Mucous Membranes Moist Neck: Trachea Midline, No Thyroid Enlargement, Masses Respiratory: Symmetrical Chest Expansion and Respiratory Effort - decreased BS bases. Cardiovascular: - - Normal S1, S2 RRR no murmur Abdominal: NL Sounds; No Tenderness; No Distention Extremities: No Edema - 1+ RLE edema, trace LLE edema Skin: No Rash or Ulcers Neurological: Alert and Oriented x 3, NL Muscle Strength and Tone Lines/Tubes/Other Access: Clean, Dry and Intact Peripheral IV Laboratory Results: 01/28/19 05:58 01/30/19 09:31 INR (Anticoag Therapy) 2.17 (0.82-1.09) H 01/30/19 05:43 APTT 37.3 seconds (26.0-38.0) 01/30/19 05:43 Total Bilirubin 1.60 mg/dL (0.2-1.0) H 01/28/19 05:58 AST 32 U/L (13-39) 01/28/19 05:58 ALT 46 U/L (7-52) 01/28/19 05:58 Alkaline Phosphatase 83 U/L (34-104) 01/28/19 05:58 B-Natriuretic Peptide > 1300 pg/mL (<=100) H 01/27/19 10:00 Total Protein 6.1 g/dL (6.4-8.9) L 01/28/19 05:58 Albumin 3.6 g/dL (3.2-5.2) 01/28/19 05:58 Globulin 2.5 g/dL (2-4) 01/28/19 05:58 Albumin/Globulin Ratio 1.4 (1-3) 01/28/19 05:58 TSH 3.72 mcIU/mL (0.34-5.60) 01/27/19 09:52 01/27/19 01/27/19 01/27/19 09:52 13:14 16:15 Troponin I 0.04 H* 0.04 H* 0.03 Laboratory Results - last 24 hr 01/29/19 01/30/19 01/30/19 11:21 05:43 09:31 INR (Anticoag Therapy) 2.97 H 2.17 H APTT 44.0 H 37.3 PT Patient/Normal 1:1 18.5 H PT Pat/Norm 1:1 1 Hr 19.3 H PTT Normal Plasma 1 Hr 38.6 H PTT Patient/Normal 1:1 36.8 Mixing Interpretation Sodium 141 Potassium 4.2 Chloride 108 Carbon Dioxide 27 Anion Gap 6 BUN 25 H Creatinine 0.95 Est GFR ( Amer) 95.4 Est GFR (Non-Af Amer) 78.8 BUN/Creatinine Ratio 26.3 H Glucose 94 Calcium 8.6 Laboratory Results - last 24 hr 01/29/19 01/30/19 01/30/19 11:21 05:43 09:31 INR (Anticoag Therapy) 2.97 H 2.17 H APTT 44.0 H 37.3 PT Patient/Normal 1:1 18.5 H PT Pat/Norm 1:1 1 Hr 19.3 H PTT Normal Plasma 1 Hr 38.6 H PTT Patient/Normal 1:1 36.8 Mixing Interpretation Sodium 141 Potassium 4.2 Chloride 108 Carbon Dioxide 27 Anion Gap 6 BUN 25 H Creatinine 0.95 Est GFR ( Amer) 95.4 Est GFR (Non-Af Amer) 78.8 BUN/Creatinine Ratio 26.3 H Glucose 94 Calcium 8.6 Diagnostic Imaging: Study data: Transthoracic echocardiogram. Rhythm: Atrial fibrillation. Findings Left ventricle: The cavity size is normal. Wall thickness is mildly increased. Systolic function is severely reduced. The estimated ejection fraction is 20-25%. Right ventricle: The cavity size is mildly dilated. Systolic function is moderately to severely reduced. Mitral valve: T There is mild to moderate regurgitation. Aortic valve: There is trace regurgitation. Tricuspid valve: There is moderate regurgitation. Pericardium: There is no pericardial effusion. Pulmonary arteries: Systolic pressure is mildly increased, estimated to be 38 mm Hg. Systemic veins: Inferior vena cava: The vessel is mildly dilated. There is (< 50%) respiratory change in the IVC dimension. - EKG Data: Tele: Sinus rhythm rate 80-90 with occasional PVC, 4 beat count of NSVT at 1030 today. No AF since 01/28/2019 Assessment/Plan #1 Newly Diagnosed SHF with severe LV dysfunction; LVEF 20-25% with diffuse hypokinesis. Presented with decompensated + SOB, edema and ascites on imaging. Patient had mild transaminitis with coagulopathy and elevated bili possibly related to hepatic congestion. responded to gentle IV diuresis yesterday and is tolerating PO lasix. Will increase Coreg to 6.25 BID, increase Lisinopril 5mg/ day. Etiology of SHF is not clear thought to be ? tachycardia induced CM however , he will need eventual ischemic eval given minimal troponin elevation and risk factors. He had a 4 beat count of NSVT will speak with Dr. Major about adding lifevest. #2 Newly diagnosed PAF; Chads Vasc 3 given age, h/o HTN and LV dysfunction. On Eliquis 5mg Po BID and toleratine. will continue Amiodarone therapy 200mg Po BID until he gets the total 8 gram load then reduce to 200mg/day. AST/ALT elevation have normalized. TSH was normal. Patient has been in NSR since CV 01/28. #3 Abnormal Liver Tests; etiology not clear could be related to above number 1. Child Pough Class B will differ evaluation to coagulopathy to primary team. Patient is s/p CV on now Eliquis therapy. Xarelto was stopped. Will monitor LFTS closely due to initiation of Amiodarone therapy. He had hepatomegaly on US of RUQ and has a h/o moderate ETOH intake. Consider eventual evaluation by GI for Cirrhosis. #4 Dispositon pending course will d/w Dr. Majro Attending: Luis Armando Major <Luis Armando Major - Last Filed: 01/30/19 14:58> Medications Active Medications: Acetaminophen (Tylenol Tab*) 650 mg PO Q4H PRN PRN Reason: PAIN Amiodarone HCl (Cordarone Tab*) 200 mg PO BID [facility] Apixaban (Eliquis*) 5 mg PO BID [facility] Last Admin: 01/30/19 07:53 Dose: 5 mg Carvedilol (Coreg Tab*) 6.25 mg PO BID [facility] Last Admin: 01/30/19 12:05 Dose: 6.25 mg Carvedilol (Coreg Tab*) 6.25 mg PO ONCE ONE Stop: 01/30/19 14:48 Folic Acid (Folvite Tab*) 1 mg PO DAILY [facility] Last Admin: 01/30/19 07:53 Dose: 1 mg Furosemide (Lasix Tab*) 20 mg PO DAILY [facility] Last Admin: 01/30/19 07:53 Dose: 20 mg Lisinopril (Prinivil Tab*) 5 mg PO DAILY [facility] Multivitamins/Minerals (Theragran/Minerals Tab*) 1 tab PO DAILY [facility] Last Admin: 01/30/19 07:53 Dose: 1 tab Thiamine HCl (Vitamin B-1 Tab*) 100 mg PO DAILY [facility] Last Admin: 01/30/19 07:53 Dose: 100 mg Topiramate (Topamax(*)) 25 mg PO BID [facility] Last Admin: 01/30/19 07:53 Dose: 25 mg Objective Vital Signs: Temp Pulse Resp BP Pulse Ox 97.4 F 79 20 150/90 94 01/30/19 11:15 01/30/19 11:15 01/30/19 11:15 01/30/19 11:15 01/30/19 11:15 Laboratory Results: 01/28/19 05:58 01/30/19 09:31 INR (Anticoag Therapy) 2.17 (0.82-1.09) H 01/30/19 05:43 APTT 37.3 seconds (26.0-38.0) 01/30/19 05:43 Total Bilirubin 1.60 mg/dL (0.2-1.0) H 01/28/19 05:58 AST 32 U/L (13-39) 01/28/19 05:58 ALT 46 U/L (7-52) 01/28/19 05:58 Alkaline Phosphatase 83 U/L (34-104) 01/28/19 05:58 B-Natriuretic Peptide > 1300 pg/mL (<=100) H 01/27/19 10:00 Total Protein 6.1 g/dL (6.4-8.9) L 01/28/19 05:58 Albumin 3.6 g/dL (3.2-5.2) 01/28/19 05:58 Globulin 2.5 g/dL (2-4) 01/28/19 05:58 Albumin/Globulin Ratio 1.4 (1-3) 01/28/19 05:58 TSH 3.72 mcIU/mL (0.34-5.60) 01/27/19 09:52 01/27/19 01/27/19 01/27/19 09:52 13:14 16:15 Troponin I 0.04 H* 0.04 H* 0.03 Assessment/Plan Chart reviewed, patient examined, discussed with MS. Berg earlier today. Above reviewed with patient and at bedside. Multiple questions addressed concerning he medical condition. I explained that he seems to be improving with medical rx and that the etiology of his lv dysfunction is still uncertain. Possibilities include tachycardia induced CM, viral, alcohol, nutritional deficiency, and hypertensive among others. His liver disease increases the risk of anticoagulant rx and cardiac cath. He understands it will take time to optimize his meds and see if ef improves. for now: repeat limited echo to assess ef. decrease amio to 200 mg bid in light of liver disease. advance lisinopril and coreg in light of hypertension. ambulate about naidu. reduce lasix as condition permits. refrain from alcohol and caffeine (risks reviewed; he admits to one beer qd but is willing to stop). continue b1,b12, folate. asked to consider phone gavin to monitor his hr /rhythm since his afib was silent may need nuclear stress or cath at some point. will defer to Dr. Mar. [facility] Counseling and/or Coordination of Care Minutes: 45 + minutes
--- NOTE | 2019-01-30 10:54 | PN ---
Subjective Date of Service: 01/30/19 Interval History: Had beats of vtach earlier. No chest pain, no shortness of breath, no palpitations. Family History: Unchanged from Admission Social History: Unchanged from Admission Past Medical History: Unchanged from Admission Objective Active Medications: Acetaminophen (Tylenol Tab*) 650 mg PO Q4H PRN PRN Reason: PAIN Amiodarone HCl (Cordarone Tab*) 400 mg PO BID [facility] Last Admin: 01/30/19 07:53 Dose: 400 mg Apixaban (Eliquis*) 5 mg PO BID [facility] Last Admin: 01/30/19 07:53 Dose: 5 mg Carvedilol (Coreg Tab*) 6.25 mg PO 2100 [facility] Last Admin: 01/29/19 21:22 Dose: 6.25 mg Carvedilol (Coreg Tab*) 3.125 mg PO DAILY [facility] Last Admin: 01/30/19 07:53 Dose: 3.125 mg Folic Acid (Folvite Tab*) 1 mg PO DAILY [facility] Last Admin: 01/30/19 07:53 Dose: 1 mg Furosemide (Lasix Tab*) 20 mg PO DAILY [facility] Last Admin: 01/30/19 07:53 Dose: 20 mg Doxycycline Hyclate 100 mg/ (Sodium Chloride) 250 mls @ 250 mls/hr IVPB Q12H [facility] Last Admin: 01/29/19 21:21 Dose: 250 mls/hr Ceftriaxone Sodium 1 gm/ (Sodium Chloride) 50 mls @ 100 mls/hr IVPB Q24H [facility] Last Admin: 01/29/19 11:16 Dose: 100 mls/hr Magnesium Sulfate (Magnesium Sulfate 2 Gm Iv*) 2 gm in 50 mls @ 50 mls/hr IVPB ONCE ONE Stop: 01/30/19 11:35 Lisinopril (Prinivil Tab*) 5 mg PO DAILY [facility] Multivitamins/Minerals (Theragran/Minerals Tab*) 1 tab PO DAILY [facility] Last Admin: 01/30/19 07:53 Dose: 1 tab Thiamine HCl (Vitamin B-1 Tab*) 100 mg PO DAILY [facility] Last Admin: 01/30/19 07:53 Dose: 100 mg Topiramate (Topamax(*)) 25 mg PO BID [facility] Last Admin: 01/30/19 07:53 Dose: 25 mg Vital Signs - 8 hr 01/30/19 01/30/1901/30/19 03:39 03:41 07:15 Temperature 98.3 F 98.1 F 97.5 F Pulse Rate 76 88 43 Respiratory 18 20 18 Rate Blood Pressure 125/66 140/96 140/97 (mmHg) O2 Sat by Pulse 96 99 99 Oximetry 01/30/19 08:00 Temperature Pulse Rate Respiratory 18 Rate Blood Pressure (mmHg) O2 Sat by Pulse Oximetry Oxygen Devices in Use Now: None Appearance: Lying in bed, not in distress Eyes: PERRLA Respiratory: Symmetrical Chest Expansion and Respiratory Effort, Clear to Auscultation Cardiovascular: NL Sounds; No Murmurs; No JVD, RRR, No Edema Abdominal: NL Sounds; No Tenderness; No Distention Skin: No Rash or Ulcers Neurological: Alert and Oriented x 3 Result Diagrams: 01/28/19 05:58 01/30/19 09:31 Additional Lab and Data: Microbiology and Other Data: Microbiology 01/29/19 10:05 Legionella Urinary Antigen - Final Urine Negative Legionella Antigen Streptococcus pneumoniae Ag Screen - Final Negative S. pneumo Antigen Assess/Plan/Problems-Billing Assessment: 69 year old man with h/o migraines, here with a-fib, rapid ventricular response , tachycardia-induced cardiomyopathy - Patient Problems (1) Atrial fibrillation with RVR Current Visit: Yes Status: Acute Priority: High Code(s): I48.91 - UNSPECIFIED ATRIAL FIBRILLATION SNOMED Code(s): 569988545070986 Comment: -Cardioversion successful -Anticoagulation changed to Eliquis due to elevated INR on Xarelto -Dr. Maria started amiodarone to maintain NSR (2) DVT prophylaxis Current Visit: Yes Status: Acute Priority: Low Code(s): Z29.9 - ENCOUNTER FOR PROPHYLACTIC MEASURES, UNSPECIFIED SNOMED Code(s): 893758618 Comment: -Eliquis (3) Tachycardia-induced cardiomyopathy Current Visit: Yes Status: Acute Priority: Medium Code(s): R00.0 - TACHYCARDIA, UNSPECIFIED; I43 - CARDIOMYOPATHY IN DISEASES CLASSIFIED ELSEWHERE SNOMED Code(s): 882727961 Comment: EF 20-25%, having beats of Vtach/PVC's- ordering Mg repletion. will d/w cardiology regarding lifevest continue BB, JORGE, lasix- titrating medications today. (4) Elevated bilirubin Current Visit: Yes Status: Acute Code(s): R17 - UNSPECIFIED JAUNDICE SNOMED Code(s): 70713488 Comment: History of alcohol use, might have cirrhosis. discuss with him regarding alcohol cessation Status and Disposition: inpatient, possible discharge in 1-2 days
[2019-01-30] MEDS ORDERED: Carvedilol TAB* 3.125 MG PO ONE (11:00)
[2019-01-30] MEDS ORDERED: Phytonadione Oral Solution* 5 MG/25 ML UDC PO ONE (11:09)
[2019-01-30] MEDS: DOXYcycline IV* 100 MG in NS 0.9% 250 ML* 250 ML IVPB SCH (11:55)
[2019-01-30] MEDS: Carvedilol TAB* 6.25 MG PO SCH ×2 (12:05→20:40)
[2019-01-30] MEDS: cefTRIAXone(*) 1 GM in NS 0.9% 50 ML* 50 ML IVPB SCH (12:48)
[2019-01-30] MEDS ORDERED: Carvedilol TAB* 6.25 MG PO ONE (14:47)
[2019-01-30 15:48] LABS: Folate > 20.00 ng/mL (>3.99)
[2019-01-30] MEDS: Amiodarone TAB* 200 MG PO SCH (20:40)
[2019-01-30] MEDS ORDERED: Carvedilol TAB* 6.25 MG PO SCH (21:00)
[2019-01-31] MEDS ORDERED: Metoprolol Tartrate IV* 1 MG/ML 5 ML VIAL ONE (06:16)
[2019-01-31] MEDS: Metoprolol Tartrate IV* 1 MG/ML 5 ML VIAL IV PRN (06:24)
[2019-01-31 07:14] LABS: BUN/Creatinine Ratio 23.5 (8-20); Calcium 8.8 mg/dL (8.6-10.3); EGFR African American 87.9 (>60); EGFR Non-African American 72.6 (>60); Potassium 4.2 mmol/L (3.5-5.0)
[2019-01-31] MEDS ORDERED: Lisinopril TAB* 5 MG PO SCH (09:00)
[2019-01-31] MEDS: Multivitamins/Minerals TAB PO SCH (09:18)
[2019-01-31] MEDS: Apixaban* 5 MG TAB PO SCH ×2 (09:18→21:03)
[2019-01-31] MEDS: Folic Acid TAB* 1 MG PO SCH (09:18)
[2019-01-31] MEDS: Carvedilol TAB* 6.25 MG PO SCH ×2 (09:19→21:02)
[2019-01-31] MEDS: Furosemide TAB* 20 MG PO SCH (09:19)
[2019-01-31] MEDS: Topiramate TAB(*) 25 MG PO SCH ×2 (09:20→21:02)
[2019-01-31] MEDS: Thiamine TAB* 100 MG TAB PO SCH (09:20)
[2019-01-31] MEDS: Amiodarone TAB* 200 MG PO SCH ×2 (09:20→21:02)
--- NOTE | 2019-01-31 10:08 | PN ---
Subjective Date of Service: 01/31/19 Interval History: At 5AM: went into Atrial Flutter- received IV metoprolol. Currently in sinus rhythm. No chest pain currently, no shortness of breath, no palpitations. Family History: Unchanged from Admission Social History: Unchanged from Admission Past Medical History: Unchanged from Admission Objective Active Medications: Acetaminophen (Tylenol Tab*) 650 mg PO Q4H PRN PRN Reason: PAIN Amiodarone HCl (Cordarone Tab*) 200 mg PO BID [facility] Last Admin: 01/31/19 09:20 Dose: 200 mg Apixaban (Eliquis*) 5 mg PO BID [facility] Last Admin: 01/31/19 09:18 Dose: 5 mg Carvedilol (Coreg Tab*) 6.25 mg PO BID [facility] Last Admin: 01/31/19 09:19 Dose: 6.25 mg Folic Acid (Folvite Tab*) 1 mg PO DAILY [facility] Last Admin: 01/31/19 09:18 Dose: 1 mg Furosemide (Lasix Tab*) 20 mg PO DAILY [facility] Last Admin: 01/31/19 09:19 Dose: 20 mg Lisinopril (Prinivil Tab*) 5 mg PO DAILY [facility] Last Admin: 01/31/19 09:20 Dose: 5 mg Metoprolol Tartrate (Lopressor Iv*) 5 mg IV Q6H PRN PRN Reason: TACHYCARDIA Last Admin: 01/31/19 06:24 Dose: 5 mg Multivitamins/Minerals (Theragran/Minerals Tab*) 1 tab PO DAILY [facility] Last Admin: 01/31/19 09:18 Dose: 1 tab Thiamine HCl (Vitamin B-1 Tab*) 100 mg PO DAILY [facility] Last Admin: 01/31/19 09:20 Dose: 100 mg Topiramate (Topamax(*)) 25 mg PO BID [facility] Last Admin: 01/31/19 09:20 Dose: 25 mg Vital Signs - 8 hr 01/31/19 03:15 Temperature 97.6 F Pulse Rate 82 Respiratory 18 Rate Blood Pressure 130/100 (mmHg) O2 Sat by Pulse 95 Oximetry Oxygen Devices in Use Now: None Appearance: Lying in bed, Not in distress Eyes: PERRLA Respiratory: Symmetrical Chest Expansion and Respiratory Effort Cardiovascular: NL Sounds; No Murmurs; No JVD, RRR, No Edema Abdominal: NL Sounds; No Tenderness; No Distention, No Hepatosplenomegaly Neurological: Alert and Oriented x 3 Result Diagrams: 01/28/19 05:58 01/31/19 06:30 Additional Lab and Data: Microbiology and Other Data: Microbiology 01/29/19 10:05 Legionella Urinary Antigen - Final Urine Negative Legionella Antigen Streptococcus pneumoniae Ag Screen - Final Negative S. pneumo Antigen Assess/Plan/Problems-Billing Assessment: 69 year old man with h/o migraines, here with a-fib, rapid ventricular response , tachycardia-induced cardiomyopathy - Patient Problems (1) Atrial fibrillation with RVR Current Visit: Yes Status: Acute Priority: High Code(s): I48.91 - UNSPECIFIED ATRIAL FIBRILLATION SNOMED Code(s): 736283375617339 Comment: Was cardioverted, went back into atrial flutter at about 5AM. currently in sinus. -Anticoagulation changed to Eliquis due to elevated INR on Xarelto on amiodarone- dose adjusted to 200mg BID due to liver disease (2) DVT prophylaxis Current Visit: Yes Status: Acute Priority: Low Code(s): Z29.9 - ENCOUNTER FOR PROPHYLACTIC MEASURES, UNSPECIFIED SNOMED Code(s): 898154240 Comment: -Eliquis (3) Tachycardia-induced cardiomyopathy Current Visit: Yes Status: Acute Priority: Medium Code(s): R00.0 - TACHYCARDIA, UNSPECIFIED; I43 - CARDIOMYOPATHY IN DISEASES CLASSIFIED ELSEWHERE SNOMED Code(s): 939329213 Comment: EF 20-25%, Plan for stress test on 02/02. continue BB, JORGE, lasix- repeat limited echo ordered again to reassess EF. (4) Elevated bilirubin Current Visit: Yes Status: Acute Code(s): R17 - UNSPECIFIED JAUNDICE SNOMED Code(s): 18910454 Comment: History of alcohol use, might have cirrhosis. discuss with him regarding alcohol cessation Status and Disposition: inpatient, possible discharge in 1-2 days
[2019-01-31] MEDS ORDERED: Carvedilol TAB* 6.25 MG PO ONE (13:09)
[2019-01-31 13:36] LABS: Albumin 3.6 g/dL (3.2-5.2); Albumin/Globulin Ratio 1.4 (1-3); Globulin 2.5 g/dL (2-4); Indirect Bilirubin 1.2 mg/dL (0.3-1.0); Total Bilirubin 1.5 mg/dL (0.2-1.0); Total Protein 6.1 g/dL (6.4-8.9)
[2019-01-31] MEDS: Losartan TAB* 25 MG PO SCH (21:02)
[2019-02-01] MEDS: Metoprolol Tartrate IV* 1 MG/ML 5 ML VIAL IV PRN (00:15)
[2019-02-01] MEDS ORDERED: Metoprolol Tartrate IV* 1 MG/ML 5 ML VIAL IV PRN (03:01)
[2019-02-01 07:31] LABS: INR 1.35 (0.82-1.09)
[2019-02-01] MEDS: Apixaban* 5 MG TAB PO SCH ×2 (08:40→20:55)
[2019-02-01] MEDS: Losartan TAB* 25 MG PO SCH ×2 (08:40→20:54)
[2019-02-01] MEDS: Topiramate TAB(*) 25 MG PO SCH ×2 (08:41→21:00)
[2019-02-01] MEDS: Multivitamins/Minerals TAB PO SCH (08:41)
[2019-02-01] MEDS: Thiamine TAB* 100 MG TAB PO SCH (08:41)
[2019-02-01] MEDS: Folic Acid TAB* 1 MG PO SCH (08:42)
[2019-02-01] MEDS: Amiodarone TAB* 200 MG PO SCH ×2 (08:42→20:54)
[2019-02-01] MEDS: Carvedilol TAB* 6.25 MG PO SCH ×3 (08:42→20:54)
--- NOTE | 2019-02-01 10:32 | PN ---
Subjective Date of Service: 02/01/19 Interval History: Had an episode of tachycardia overnight Currently NSR. Reports no chest pain, no shortness of breath Family History: Unchanged from Admission Social History: Unchanged from Admission Past Medical History: Unchanged from Admission Objective Active Medications: Acetaminophen (Tylenol Tab*) 650 mg PO Q4H PRN PRN Reason: PAIN Amiodarone HCl (Cordarone Tab*) 200 mg PO BID [facility] Last Admin: 02/01/19 08:42 Dose: 200 mg Apixaban (Eliquis*) 5 mg PO BID [facility] Last Admin: 02/01/19 08:40 Dose: 5 mg Carvedilol (Coreg Tab*) 6.25 mg PO TID [facility] Last Admin: 02/01/19 08:42 Dose: 6.25 mg Folic Acid (Folvite Tab*) 1 mg PO DAILY [facility] Last Admin: 02/01/19 08:42 Dose: 1 mg Losartan Potassium (Cozaar Tab*) 25 mg PO BID [facility] Last Admin: 02/01/19 08:40 Dose: 25 mg Metoprolol Tartrate (Lopressor Iv*) 5 mg IV Q5M PRN PRN Reason: TACHYCARDIA Last Admin: 02/01/19 03:15 Dose: 5 mg Multivitamins/Minerals (Theragran/Minerals Tab*) 1 tab PO DAILY [facility] Last Admin: 02/01/19 08:41 Dose: 1 tab Thiamine HCl (Vitamin B-1 Tab*) 100 mg PO DAILY [facility] Last Admin: 02/01/19 08:41 Dose: 100 mg Topiramate (Topamax(*)) 25 mg PO BID [facility] Last Admin: 02/01/19 08:41 Dose: 25 mg Vital Signs - 8 hr 02/01/19 02/01/19 02/01/19 03:10 03:51 08:34 Temperature 97.5 F 97.9 F Pulse Rate 60 Respiratory 17 20 Rate Blood Pressure 110/60 119/76 (mmHg) O2 Sat by Pulse 97 92 Oximetry 02/01/19 08:50 Temperature Pulse Rate Respiratory Rate Blood Pressure 100/70 (mmHg) O2 Sat by Pulse Oximetry Oxygen Devices in Use Now: None Appearance: Lying in bed, Not in distress Eyes: PERRLA Respiratory: Symmetrical Chest Expansion and Respiratory Effort, Clear to Auscultation Cardiovascular: NL Sounds; No Murmurs; No JVD, RRR, No Edema Abdominal: NL Sounds; No Tenderness; No Distention, No Hepatosplenomegaly Extremities: No Edema Neurological: Alert and Oriented x 3 Result Diagrams: 01/28/19 05:58 01/31/19 06:30 Additional Lab and Data: Microbiology and Other Data: Microbiology 01/29/19 10:05 Legionella Urinary Antigen - Final Urine Negative Legionella Antigen Streptococcus pneumoniae Ag Screen - Final Negative S. pneumo Antigen Assess/Plan/Problems-Billing Assessment: 69 year old man with h/o migraines, here with a-fib, rapid ventricular response , tachycardia-induced cardiomyopathy - Patient Problems (1) Atrial fibrillation with RVR Current Visit: Yes Status: Acute Priority: High Code(s): I48.91 - UNSPECIFIED ATRIAL FIBRILLATION SNOMED Code(s): 185778385818317 Comment: Was cardioverted, went back into atrial flutter at about 01/31/19 5AM. currently in sinus. -Anticoagulation changed to Eliquis due to elevated INR on Xarelto on amiodarone- dose adjusted to 200mg BID due to liver disease coreg dose increaed 01/31 to 6.25mg BID, current rate in the 70's and BP controlled- will monitor, if continues to have episodes of tachycardia- will consider increasing coreg dose (2) DVT prophylaxis Current Visit: Yes Status: Acute Priority: Low Code(s): Z29.9 - ENCOUNTER FOR PROPHYLACTIC MEASURES, UNSPECIFIED SNOMED Code(s): 515854049 Comment: -Eliquis (3) Tachycardia-induced cardiomyopathy Current Visit: Yes Status: Acute Priority: Medium Code(s): R00.0 - TACHYCARDIA, UNSPECIFIED; I43 - CARDIOMYOPATHY IN DISEASES CLASSIFIED ELSEWHERE SNOMED Code(s): 138554422 Comment: EF 20-25%, Plan for stress test on 02/02. continue BB, lisinopril changed to losartan 01/31 due to cough, repeat limited echo ordered again to reassess EF. (4) Elevated bilirubin Current Visit: Yes Status: Acute Code(s): R17 - UNSPECIFIED JAUNDICE SNOMED Code(s): 93065985 Comment: History of alcohol use, might have cirrhosis. discuss with him regarding alcohol cessation US done 01/27: ascites, no gall stones, negative sono melendez sign. Status and Disposition: inpatient, possible discharge in 1-2 days
[2019-02-02] MEDS: Carvedilol TAB* 6.25 MG PO SCH ×2 (11:01→15:00)
[2019-02-02] MEDS: Multivitamins/Minerals TAB PO SCH (11:01)
[2019-02-02] MEDS: Amiodarone TAB* 200 MG PO SCH (11:01)
[2019-02-02] MEDS: Apixaban* 5 MG TAB PO SCH (11:01)
[2019-02-02] MEDS: Folic Acid TAB* 1 MG PO SCH (11:02)
[2019-02-02] MEDS: Thiamine TAB* 100 MG TAB PO SCH (11:02)
[2019-02-02] MEDS: Topiramate TAB(*) 25 MG PO SCH (11:02)
[2019-02-02] MEDS: Losartan TAB* 25 MG PO SCH (11:02)
--- NOTE | 2019-02-02 11:30 | ECHO ---
*[facility]* [place] [address] Fax #: [phone] Limited Transthoracic Echocardiogram Patient: Phani Branham : 1950 Study Date: 02/02/2019 Age: 69 Gender: M HR: 68 bpm Height: 78 in /198.1 cm BSA: 2.26 m^2 Weight: 204 lb /92.7 kg BMI: 23.6 kg/m^2 *[place]: * Prudence Lehman RDCS RN *Referring Physician: * Eric Mar MD *Reading Physician: * Eric Mar MD Indications: Cardiomyopathy. History: Atrial fibrillation. Risk factors: Current tobacco use. Conclusions Summary: - Limited echocardiogram to reevaluate left ventricle function - Left ventricle: Systolic function is severely reduced. The estimated ejection fraction is 20-25%, closer to 25%. The proximal inferolateral wall moves best. Severe diffuse hypokinesis. - Compared to transesophageal echocardiogram from 01/28/19, there is no change in left ventricle function. Study data: Transthoracic echocardiogram. This is a limited study to reassess left ventricle function. Procedure: Transthoracic echocardiography was performed. Image quality was fair. Location: Bedside. Patient status: Inpatient. Patient room number: 441-02. Rhythm: Normal sinus rhythm with PAC's. Findings Left ventricle: Systolic function is severely reduced. The estimated ejection fraction is 20-25%, closer to 25%. The proximal inferolateral wall moves best. Severe diffuse hypokinesis. Right ventricle: Systolic function is moderately reduced. Prepared and electronically signed by Eric Mar MD 02/02/2019 11:29
--- NOTE | 2019-02-02 12:28 | PN ---
Subjective Date of Service: 02/02/19 Interval History: No acute issues overnight Had stress test today Currently no chest pain, no shortness of breath. He did go back into atrial flutter with rate 120's-130's, resolved on its own and went back into sinus rhythm with HR in 60's. Family History: Unchanged from Admission Social History: Unchanged from Admission Past Medical History: Unchanged from Admission Objective Active Medications: Acetaminophen (Tylenol Tab*) 650 mg PO Q4H PRN PRN Reason: PAIN Amiodarone HCl (Cordarone Tab*) 200 mg PO BID [facility] Last Admin: 02/02/19 11:01 Dose: 200 mg Apixaban (Eliquis*) 5 mg PO BID [facility] Last Admin: 02/02/19 11:01 Dose: 5 mg Carvedilol (Coreg Tab*) 6.25 mg PO TID [facility] Last Admin: 02/02/19 11:01 Dose: 6.25 mg Folic Acid (Folvite Tab*) 1 mg PO DAILY [facility] Last Admin: 02/02/19 11:02 Dose: 1 mg Losartan Potassium (Cozaar Tab*) 25 mg PO BID [facility] Last Admin: 02/02/19 11:02 Dose: 25 mg Metoprolol Tartrate (Lopressor Iv*) 5 mg IV Q5M PRN PRN Reason: TACHYCARDIA Last Admin: 02/01/19 03:15 Dose: 5 mg Multivitamins/Minerals (Theragran/Minerals Tab*) 1 tab PO DAILY [facility] Last Admin: 02/02/19 11:01 Dose: 1 tab Thiamine HCl (Vitamin B-1 Tab*) 100 mg PO DAILY [facility] Last Admin: 02/02/19 11:02 Dose: 100 mg Topiramate (Topamax(*)) 25 mg PO BID [facility] Last Admin: 02/02/19 11:02 Dose: 25 mg Vital Signs - 8 hr 02/02/19 02/02/19 02/02/19 08:00 10:04 11:42 Temperature 97.8 F 97.1 F Pulse Rate 68 63 Respiratory 16 16 16 Rate Blood Pressure 110/74 129/77 (mmHg) O2 Sat by Pulse 100 100 Oximetry Oxygen Devices in Use Now: None Appearance: Lying in bed, not in distress Respiratory: Symmetrical Chest Expansion and Respiratory Effort, Clear to Auscultation Cardiovascular: NL Sounds; No Murmurs; No JVD, RRR Abdominal: NL Sounds; No Tenderness; No Distention, No Hepatosplenomegaly Extremities: No Edema Skin: No Rash or Ulcers Result Diagrams: 01/28/19 05:58 01/31/19 06:30 Additional Lab and Data: Microbiology and Other Data: Microbiology 01/29/19 10:05 Legionella Urinary Antigen - Final Urine Negative Legionella Antigen Streptococcus pneumoniae Ag Screen - Final Negative S. pneumo Antigen Assess/Plan/Problems-Billing Assessment: 69 year old man with h/o migraines, here with a-fib, rapid ventricular response , tachycardia-induced cardiomyopathy - Patient Problems (1) Atrial fibrillation with RVR Current Visit: Yes Status: Acute Priority: High Code(s): I48.91 - UNSPECIFIED ATRIAL FIBRILLATION SNOMED Code(s): 127803471742546 Comment: Was cardioverted, went back into atrial flutter at about 01/31/19 5AM. currently in sinus. -Anticoagulation changed to Eliquis due to elevated INR on Xarelto on amiodarone- dose adjusted to 200mg BID due to liver disease coreg dose increased 01/31 to 6.25mg BID, current rate in the 70's and BP controlled- will monitor, if continues to have episodes of tachycardia- will consider increasing coreg dose (2) DVT prophylaxis Current Visit: Yes Status: Acute Priority: Low Code(s): Z29.9 - ENCOUNTER FOR PROPHYLACTIC MEASURES, UNSPECIFIED SNOMED Code(s): 013178751 Comment: -Eliquis (3) Tachycardia-induced cardiomyopathy Current Visit: Yes Status: Acute Priority: Medium Code(s): R00.0 - TACHYCARDIA, UNSPECIFIED; I43 - CARDIOMYOPATHY IN DISEASES CLASSIFIED ELSEWHERE SNOMED Code(s): 956364238 Comment: EF 20-25%, continue BB, lisinopril changed to losartan 01/31 due to cough, repeat limited echo shows EF essentially same: low about 25% had stress test which showed no area of ischemia, but revealed low EF, case discussed with Dr. Mar, patient will need life vest to prevent arrythmia given cardiomyopathy, and EF of 20-25% (4) Elevated bilirubin Current Visit: Yes Status: Acute Code(s): R17 - UNSPECIFIED JAUNDICE SNOMED Code(s): 22496213 Comment: History of alcohol use, might have cirrhosis. discuss with him regarding alcohol cessation US done 01/27: ascites, no gall stones, negative sono melendez sign. Status and Disposition: possibly discharge today if we can arrange the life vest.
[2019-02-02] MEDS ORDERED: Regadenoson* 0.4 MG/5 ML SYRINGE ONE (13:28)
[2019-02-02 14:59] VITALS: BP 119/76
--- NOTE | 2019-02-02 15:40 | PN ---
Hospitalist Progress Note Date of Service: 02/02/19 Patient has non-ischemic cardiomyopathy. EF of 27% as seen on stress test today. Patient requires life vest due to low ejection fraction.
--- NOTE | 2019-02-02 21:35 | DS ---
CC: Dr. Davison; Dr. Mar; Dr. Maria.* DISCHARGE SUMMARY: DATE OF ADMISSION: 01/27/19 DATE OF DISCHARGE: 02/02/19 PRIMARY CARE PROVIDER: Dr. Davison. CONSULTANTS DURING THE COURSE: Included Dr. Maria and Dr. Mar. REASON FOR THE ADMISSION: Shortness of breath. DISCHARGE DIAGNOSES: Include: 1. Atrial fibrillation. 2. Cardiomyopathy. 3. Probable liver disease. 4. Atrial fibrillation with cardioversion. HOSPITAL COURSE: This is a 69-year-old male with past medical history of migraine and atrial fibrillation, who had presented to hospital himself because of shortness of breath. The patient was found to have atrial fibrillation with a rapid ventricular response. At home, the patient takes verapamil and also takes Xarelto. The patient was also found to have congestive heart failure exacerbation. The patient was admitted to hospital, small business director was consulted. The patient was initially started on a Cardizem drip. The patient eventually underwent cardioversion on 01/28/19 and was switched over to amiodarone as well as carvedilol. The patient was also found to have a slightly abnormal liver functioning tests, which included elevated total bilirubin as well as elevated INR. The patient had an ultrasound of the abdomen done which showed ascites in the right lower quadrant, apparent gallbladder thickening likely due to ascites, negative for sonographic Lubin sign. Regarding the atrial fibrillation, the patient's anticoagulation, Xarelto was changed to Eliquis due to liver disease. The patient was successfully cardioverted, however, did have episodes of atrial fibrillation and atrial flutter post cardioversion; however, he would convert to sinus rhythm on his own. The patient was found to have ejection fraction of 20% to 25% for which he underwent a stress today and was found to have a high-risk stress test because of the ejection fraction; however, there was no ischemia found. This is considered not ischemic cardiomyopathy/tachycardic-induced cardiomyopathy. We are arranging for the patient to have a LifeVest. The patient's additional testing in the hospital also included venous Doppler study which was negative for a DVT and the patient had a chest CTA which was negative for pulmonary embolism. DISCHARGE PLANNING: The patient's discharge condition is stable. DISCHARGE DISPOSITION: Home. DIET: Heart-healthy diet. DISCHARGE MEDICATIONS: Include: 1. Amiodarone 200 mg b.i.d. 2. Eliquis 5 mg b.i.d. 3. Folic acid 1 mg daily. 4. Carvedilol 6.25 mg b.i.d. 5. Losartan 25 mg b.i.d. 6. Multivitamins 1 tab daily. 7. Thiamine 100 mg daily. FOLLOWUP: The patient's referral has been made for Dr. Renato Davison, primary care provider, and the patient is to follow up with Dr. Eric Mar on 03/04/19 at 10:15 a.m. We have contacted the agency for providing the LifeVest. The patient will be discharged upon the set up of the LifeVest. The patient is instructed to wear his LifeVest as instructed. The patient will return to the emergency room for palpitations, shortness of breath, or chest pain. The patient to call PCP for any issues. The patient to follow up with his small business director as scheduled. We recommended the patient see a english drawer for a probable liver disease. For his physical exam, please see my progress note from today. [id number]/CPS #: [id number] MTDD
[2019-02-05 14:21] LABS: Coagulation Factor VIII Activi 203 % (55 - 200); Special Coag Interp Performed
== END 2019-02-02 19:00 | disposition home or self-care (01) | DRG 308 ==
LOC: ED 09:14 → MEDTELE 11:46 → OBSVTOIN 01-28 16:39
PROVIDERS: ADMIT Internal Medicine; ATTEND Internal Medicine
PROC: B24BZZ4 Ultrasonography of Heart with Aorta, Transesophageal (ICD-10-PCS; principal; 2019-01-28 15:00)
DX: I48.0 Paroxysmal atrial fibrillation (principal); I50.23 Acute on chronic systolic (congestive) heart failure; R18.8 Other ascites; D68.9 Coagulation defect, unspecified; I43 Cardiomyopathy in diseases classified elsewhere; I48.92 Unspecified atrial flutter; I47.2 Ventricular tachycardia; K76.9 Liver disease, unspecified; G43.909 Migraine, unspecified, not intractable, without status migrainosus; Z79.01 Long term (current) use of anticoagulants; Z82.49 Family history of ischemic heart disease and other diseases of the circulatory system; Z72.89 Other problems related to lifestyle; Z87.891 Personal history of nicotine dependence; Z83.3 Family history of diabetes mellitus; Z87.01 Personal history of pneumonia (recurrent)
CPT/HCPCS: 36415; 71045; 71275; 76705; 78452; 80048; 80053; 80076; 80500; 82607; 82746; 83605; 83735; 83880; 84425; 84443; 84484; 85025; 85240; 85379; 85610; 85730; 87899; 92960; 93005; 93017; 93306; 93308; 93312; 93325; 93970; 99156; 99157; 99285; A9270-GY; A9502; G0378; J0282; J0456; J0696; J1160; J1940; J2250; J2310; J2785; J3010; J3411; J3475; J3490; Q9967